=== PATIENT | female | born 1985 | race Asian ===

== ENCOUNTER → 2018-10-16 | Outpatient (CLI) | payer OTHER | LOC: FIMAGING 10:31 | PROVIDERS: ATTEND Family Medicine | DX: R92.2 Inconclusive mammogram (principal) ==

== ENCOUNTER → 2019-02-22 | Outpatient (CLI) | payer BC | LOC: FIMAGING 10:02 | PROVIDERS: ATTEND Midwife | DX: O09.522 Supervision of elderly multigravida, second trimester (principal); Z3A.19 19 weeks gestation of pregnancy ==